=== PATIENT | male | born 1995 | race African-American/Black ===

== ENCOUNTER 2018-01-27 18:06 | Inpatient (IN) | payer MEDICAID ==
[~2018-01-27] VITALS: Ht 185.4 cm; Wt 87.0 kg
[~2018-01-27 18:06] MED LIST: ALBUPOW26
[2018-01-27] MEDS ORDERED: SODIUM CHLORIDE 0.9% 1,000 ML IV ONE (18:28)
[2018-01-27] MEDS ORDERED: methylPREDNISolone SOD SUCC 125 MG/2 ML VL IV ONE (18:30)
[2018-01-27] MEDS ORDERED: IPRATROPIUM BROM 0.5 MG/2.5ML INH SOL HHN ONE (18:30)
[2018-01-27] MEDS ORDERED: ALBUTEROL SULF 2.5 MG/0.5ML(0.5%) NEB SOLN HHN ONE (18:30)
[2018-01-27 19:11] LABS: Basophils # (auto) 0 uL; Basophils % (auto) 0.3 % (0.0-2.0); Eosinophils # (auto) 0.2 uL; Eosinophils % (auto) 2.4 % (0.0-7.0); Hematocrit 42.7 % (41.0-53.0); Hemoglobin 14.4 g/dL (13.5-17.5); Lymphocytes # (auto) 2.5 uL; Lymphocytes % (auto) 34.5 % (10.0-50.0); Mean Corpuscular Hemoglobin 32.9 pg (28.0-32.0); Mean Corpuscular Hgb Conc. 33.6 g/dL (32.0-36.0); Mean Corpuscular Volume 97.8 fL (80.0-100.0); Monocytes # (auto) 0.8 uL; Monocytes % (auto) 11.5 % (0.0-12.0); Neutrophils # (auto) 3.8 uL; Neutrophils % (auto) 51.3 % (37.0-80.0); Nucleated Red Blood Cells % 0.1 %; Platelet Count (auto) 311 10^3/uL (140-450); Red Blood Cells 4.37 10^6/uL (4.5-5.90); Red Cell Distribution Width 13.6 % (11.8-14.3); White Blood Cell 7.3 10^3/uL (4.4-10.8)
[2018-01-27] MEDS ORDERED: PROMETHAZINE HCL 25 MG/ML 1ML IV PRN (19:30)
[2018-01-27] MEDS ORDERED: ALBUTEROL SULF 2.5 MG/0.5ML(0.5%) NEB SOLN NEB PRN (19:30)
[2018-01-27] MEDS ORDERED: MORPHINE SULFATE 8mg/ml INJ SDV IV PRN ×2 (19:30)
[2018-01-27] MEDS ORDERED: NITROGLYCERIN 0.4 MG SL TAB SL PRN (19:30)
[2018-01-27] MEDS ORDERED: LORazepam 0.5 MG TAB PO PRN (19:30)
[2018-01-27] MEDS ORDERED: TEMAZEPAM 15 MG CAP PO PRN (19:30)
[2018-01-27] MEDS ORDERED: LACTULOSE 20Gm/30ML SOLN PO PRN (19:30)
[2018-01-27] MEDS ORDERED: ACETAMINOPHEN 500 MG TAB PO PRN (19:30)
[2018-01-27 19:35] LABS: Alanine Aminotransferase 41 U/L (16-61); Albumin 3.1 g/dL (3.4-5.0); Alkaline Phosphatase 67 U/L (45-117); Anion Gap 12 (5-15); Aspartate Aminotransferase 19 U/L (15-37); BUN/Creatinine Ratio 10.4; Bilirubin, Total 0.4 mg/dL (0.2-1.0); Blood Urea Nitrogen 10 mg/dL (7-18); Calcium 8.6 mg/dL (8.5-10.1); Carbon Dioxide 23 mmol/L (21-32); Chloride 108 mmol/L (98-107); GFR African American 124 mL/min; GFR Non-African American 102 mL/min; Glucose 96 mg/dL (74-106); Potassium 3.4 mmol/L (3.5-5.1); Sodium 143 mmol/L (136-145); Total Protein 6.5 g/dL (6.4-8.2)
[2018-01-27] MEDS ORDERED: MORPHINE SULF INJ 2 MG/ML SYRINGE 1ML ONE (19:46)
[2018-01-27] MEDS: DOXYCYCLINE 100MG/250ML 250 ML IV SCH (19:58)
[2018-01-27] MEDS: SODIUM CHLORIDE 0.9% 1,000 ML IV SCH (19:58)
[2018-01-27 22:00] VITALS: BP 112/66
[2018-01-27] MEDS ORDERED: ALBUAER3 IN (22:15)
[2018-01-27] MEDS ORDERED: ALBU0.084 NEB (22:17)
[2018-01-27] MEDS: HYDROcodone-ACET 5/325MG TAB PO PRN (22:25)
[2018-01-28] MEDS: methylPREDNISolone SOD SUCC 40 MG/ML VL IV SCH ×3 (00:10→12:00)
[2018-01-28 03:49] VITALS: BP 112/66
[2018-01-28 05:00] VITALS: BP 119/61
[2018-01-28] MEDS: HYDROcodone-ACET 5/325MG TAB PO PRN (06:01)
[2018-01-28] MEDS: IPRATROPIUM BROM 0.5 MG/2.5ML INH SOL NEB SCH ×3 (06:51→12:00)
[2018-01-28] MEDS: ALBUTEROL SULF 2.5 MG/0.5ML(0.5%) NEB SOLN NEB SCH ×3 (06:51→12:00)
[2018-01-28 08:00] VITALS: BP 134/61
[2018-01-28] MEDS: DOXYCYCLINE 100MG/250ML 250 ML IV SCH (08:50)
[2018-01-28 09:00] VITALS: BP 134/61
[2018-01-28] MEDS: SODIUM CHLORIDE 0.9% 1,000 ML IV SCH (09:00)
[2018-01-28 12:38] VITALS: BP 134/61
[2018-01-28 12:49] VITALS: BP 141/67
== END 2018-01-28 13:00 | disposition home or self-care (01) | DRG 141 ==
LOC: EDBD 18:06 → ER 18:09 → TELE 18:10 → TELE-WESTW 21:42
PROVIDERS: ADMIT Internal Medicine; ATTEND Internal Medicine
DX: J45.42 Moderate persistent asthma with status asthmaticus (principal); F41.9 Anxiety disorder, unspecified; G47.00 Insomnia, unspecified; J45.41 Moderate persistent asthma with (acute) exacerbation; F17.210 Nicotine dependence, cigarettes, uncomplicated; F12.90 Cannabis use, unspecified, uncomplicated; Z90.89 Acquired absence of other organs; Z82.49 Family history of ischemic heart disease and other diseases of the circulatory system
CPT/HCPCS: 36415; 71045; 80053; 84484; 85025; 87070; 87205; 94640; 94644; 94761; 96361; 96374; 96375; J3490